=== PATIENT | female | born 1985 | race Caucasian/White ===

== ENCOUNTER → 2018-12-18 | Outpatient (CLI) | payer OTHER ==
--- NOTE | 2018-12-18 19:14 | REP ---
HISTORY: Lower abdominal pain. FINDINGS: KUB shows the intestinal gas pattern to be nonspecific. The organ silhouettes insofar as delineated are unremarkable. There is no evidence of free intraperitoneal air. IMPRESSION: Nonspecific. Electronically Signed by Deandre Silva DO 12/18/2018 07:38 P
== END ==
LOC: M WUC 18:12
PROVIDERS: ATTEND Physician Assistant
DX: R10.30 Lower abdominal pain, unspecified (principal)

== ENCOUNTER → 2019-01-20 | Outpatient (REF) | payer OTHER ==
[2019-01-22 10:53] LABS: CA 125 15.6 U/ML (<30.2); CA19-9 TUMOR MARKER,CARBOHYDRA 14.7 U/ML (<35.0)
== END ==
LOC: M LABDRAW1 15:24
PROVIDERS: ATTEND Obstetrics & Gynecology
DX: D39.12 Neoplasm of uncertain behavior of left ovary (principal)